=== PATIENT | female | born 1955 | race Caucasian/White ===

== ENCOUNTER 2020-11-04 09:10 | Outpatient (CLI) | payer OTHER | END 2020-11-04 09:11 | disposition critical access hospital (66) | LOC: EMS 09:10 | PROVIDERS: ATTEND Emergency Medicine | DX: R42 Dizziness and giddiness (principal); R11.0 Nausea | CPT/HCPCS: A0425; A0427 ==

== ENCOUNTER 2020-11-04 09:32 | Emergency (ER) | payer OTHER ==
[2020-11-04] MEDS ORDERED: SODIUM CHLORIDE 0.9% 1,000 ML IV STA (10:15)
--- NOTE | 2020-11-04 10:27 | XRAY Report ---
PROCEDURE: Chest 1 View X-Ray INDICATIONS: Chest Pain TECHNIQUE: One view of the chest was acquired. COMPARISON: None FINDINGS: Surgical changes and devices: None. Lungs and pleura: No pleural effusions or pneumothorax. Question small focal left basilar infiltrate . Mediastinum: Mediastinal contours appear normal. Heart size is normal. Bones and chest wall: No suspicious bony lesions. Overlying soft tissues appear unremarkable. IMPRESSION: Question small focal left basilar pneumonia. Progress films are recommended until clear. Reviewed by: Tarik Montgomery MD on 11/04/2020 10:25 AM PDT Approved by: Tarik Montgomery MD on 11/04/2020 10:25 AM PDT Station ID: [id number]
[2020-11-04 10:44] LABS: BASOPHILS # (AUTO) 0.1 10^3/uL (0.0-0.1); BASOPHILS % (AUTO) 0.8 %; EOSINOPHILS # (AUTO) 0.2 10^3/uL (0.0-0.7); EOSINOPHILS % (AUTO) 3.5 %; HCT - HEMATOCRIT 42.3 % (37.0-47.0); HGB - HEMOGLOBIN 13.8 g/dL (12.0-16.0); LYMPHOCYTES # (AUTO) 1.6 10^3/uL (1.5-3.5); LYMPHOCYTES % (AUTO) 24.6 %; MEAN CORPUSCULAR HEMOGLOBIN 29.7 pg (27.0-31.0); MEAN CORPUSCULAR HGB CONC 32.6 g/dL (32.0-36.0); MEAN PLATELET VOLUME 9.7 fL (7.9-10.8); MONOCYTES # (AUTO) 0.6 10^3/uL (0.0-1.0); MONOCYTES % (AUTO) 9.6 %; NEUTROPHILS % (AUTO) 61.2 %; PLT - PLATELET COUNT 347 10^3/uL (130-450); RED BLOOD COUNT 4.65 10^6/uL (4.20-5.40); RED CELL DISTRIBUTION WIDTH 14.1 % (12.0-15.0); WHITE BLOOD COUNT 6.6 x10^3/uL (4.8-10.8)
[2020-11-04 10:55] LABS: ALBUMIN 4.1 g/dL (3.2-5.5); ALBUMIN/GLOBULIN RATIO 1.1 (1.0-2.2); BILIRUBIN,TOTAL 0.8 mg/dL (0.2-1.0); CALCIUM 9.5 mg/dL (8.5-10.3); CREATININE 0.7 mg/dL (0.4-1.0); TOTAL PROTEIN 7.7 g/dL (6.7-8.2)
--- NOTE | 2020-11-04 12:14 | ED Physician Documentation ---
History of Present Illness - Stated complaint Stated Complaint: N/V, DIZZINESS - Chief complaint Chief Complaint: Neuro - History obtained from History obtained from: Patient - Additonal information Additional information: 65-year-old woman, previously healthy presents with severe pain this morning while trying to get up, sharp quality, associated with waves of nausea and vomiting (nbnb) and sensation of lightheadedness. Patient states that she felt normal yesterday but has had some abdominal upset recently. She also states that she has intermittent severe right inguinal and lower abdominal pain that is worse with cough, with sitting up and with rolling over in bed. Denies fever, diarrhea, urinary symptoms.Denies chest pain, shortness of breath or cardiac history. Review of Systems Ten Systems: 10 systems reviewed and negative Constitutional: denies: Fever, Chills GI: reports: Abdominal Pain, Nausea, Vomiting : denies: Dysuria Neurologic: reports: Other (lightheadedness) PD PAST MEDICAL HISTORY - Past Medical History Past Medical History: Yes Neuro: CVA, Migraines - Past Surgical History Past Surgical History: No - Present Medications Home Medications: Ambulatory Orders Medication Instructions Recorded Confirmed No Known Home Medications 11/04/20 11/04/20 - Allergies Allergies/Adverse Reactions: Allergies Allergy/AdvReac Type Severity Reaction Status Date / Time codeine Allergy Hives Verified 11/04/20 09:45 - Social History Does the pt smoke?: No Smoking Status: Never smoker Does the pt drink ETOH?: No Does the pt have substance abuse?: No - POLST Patient has POLST: No PD ED PE NORMAL - Vitals Vital signs reviewed: Yes - General General: Alert and oriented X 3, No acute distress, Well developed/nourished - HEENT HEENT: Atraumatic, PERRL, EOMI - Neck Neck: Supple, no meningeal sign - Cardiac Cardiac: RRR, No murmur, No gallop, No rub - Respiratory Respiratory: No respiratory distress, Clear bilaterally - Abdomen Abdomen: Non tender, Non distended, Other (R inguinal hernia palpaple with cough) - Female Female : Deferred - Rectal Rectal: Deferred - Back Back: No CVA TTP - Derm Derm: Normal color, Warm and dry - Extremities Extremities: No deformity - Neuro Neuro: Alert and oriented X 3 - Psych Psych: Normal mood, Normal affect Results - Vitals Vitals: Vital Signs - 24 hr 03/23/21 03/23/21 03/23/21 09:35 09:47 10:19 Temperature 36.9 C Heart Rate 82 75 88 Respiratory 17 16 Rate Blood Pressure 134/86 H 117/74 O2 Saturation 98 96 97 11/04/20 11:52 Temperature 36.8 C Heart Rate 78 Respiratory 18 Rate Blood Pressure 130/80 O2 Saturation 98 Oxygen O2 Source Room air - Labs Labs: Laboratory Tests 11/04/20 11/04/20 11/04/20 10:32 10:32 10:32 WBC 6.6 RBC 4.65 Hgb 13.8 Hct 42.3 MCV 91.0 MCH 29.7 MCHC 32.6 RDW 14.1 Plt Count 347 MPV 9.7 Neut # (Auto) 4.0 Lymph # (Auto) 1.6 [place] # (Auto) 0.6 Eos # (Auto) 0.2 Baso # (Auto) 0.1 Absolute Nucleated RBC 0.00 Nucleated RBC % 0.0 Sodium 136 Potassium 4.0 Chloride 102 Carbon Dioxide 24 Anion Gap 10.0 BUN 14 Creatinine 0.7 Estimated GFR (MDRD) 85 L Glucose 111 H Calcium 9.5 Total Bilirubin 0.8 AST 19 ALT 15 Alkaline Phosphatase 60 Troponin I High Sens < 2.3 L Total Protein 7.7 Albumin 4.1 Globulin 3.6 Albumin/Globulin Ratio 1.1 Lipase 21 L PD MEDICAL DECISION MAKING - ED course Complexity details: reviewed results, d/w patient ED course: 65-year-old woman, previously healthy presents with right inguinal hernia. She will f/u in surgery clinic. strict return precautions given. Departure - Departure Disposition: 01 Home, Self Care Clinical Impression: Inguinal hernia, Lightheadedness Condition: Stable Instructions: ED Hernia Inguinal Follow-Up: Luis Antonio Thomson MD [Provider Admit Priv/Credential] - Comments: You are seen in the emergency department for nausea, lightheadedness, and pain in your abdomen, and it appears to be the you have a right inguinal hernia causing your symptoms. You need to take it easy over the next couple days and drink lots of water to stay hydrated. Follow-up in surgery clinic for routine operative repair of your hernia. Do not lift anything heavier than a carton of milk over the next couple days.Return to the emergency department if you cannot put the hernia back in, if you develop any new or worsening symptoms or other concerns.
[2020-11-04 12:33] VITALS: BP 106/83
== END 2020-11-04 12:31 | disposition home or self-care (01) ==
LOC: ED 09:32
DX: K40.90 Unilateral inguinal hernia, without obstruction or gangrene, not specified as recurrent (principal)
CPT/HCPCS: 36415; 80053; 83690; 84484; 85025; 93005; 99284

== ENCOUNTER 2020-11-05 03:23 | Emergency (ER) | payer OTHER ==
--- NOTE | 2020-11-05 03:31 | ED Physician Documentation ---
PD HPI ABD PAIN - Stated complaint Stated Complaint: ABD PX, NAUSEA, VOMITING, HEADACHE - History obtained from History obtained from: Patient - History of Present Illness Timing - onset: Yesterday Timing - duration: Days (1) Timing - details: Abrupt onset, Still present Quality: Aching, Sharp, Pain Location: RLQ Radiation: No: Lower back, Right flank Worsened by: Moving, Palpation (in inguinal area) Associated symptoms: Nausea, Vomiting (couple of times.). No: Fever, Diarrhea, Constipation Similar symptoms before: Has not had sx before Recently seen: Emergency Dept (yesterday with this pain and had inguinal t enderness. Dx with hernia when stomach pressured/grunting. No signs of incarceration. Referred to Surgery. Has worse pain overnight and here for re- eval.) Review of Systems Constitutional: denies: Fever, Chills Nose: denies: Rhinorrhea / runny nose, Congestion Throat: denies: Sore throat Respiratory: denies: Cough GI: reports: Abdominal Pain, Nausea, Vomiting. denies: Constipation, Diarrhea : denies: Dysuria, Frequency Skin: denies: Rash, Lesions Neurologic: reports: Generalized weakness (feeling of lightheadedness with standing.). denies: Focal weakness, Numbness, Altered mental status, Headache PD PAST MEDICAL HISTORY - Past Medical History Neuro: CVA, Migraines - Past Surgical History Past Surgical History: No - Present Medications Home Medications: Ambulatory Orders Medication Instructions Recorded Confirmed HYDROcod/ACETAM 5/325 [[place] 5/325] 1 ea PO Q6H PRN #18 tablet 11/05/20 Naproxen [EC-Naproxen] 500 mg PO BID #20 11/05/20 Ondansetron Odt [Zofran] 4 mg TL Q6H PRN #10 tablet 11/05/20 - Allergies Allergies/Adverse Reactions: Allergies Allergy/AdvReac Type Severity Reaction Status Date / Time codeine Allergy Hives Verified 11/05/20 03:46 - Social History Does the pt smoke?: No Smoking Status: Never smoker Does the pt drink ETOH?: No Does the pt have substance abuse?: No - POLST Patient has POLST: No PD ED PE NORMAL - Vitals Vital signs reviewed: Yes - General General: Alert and oriented X 3, Well developed/nourished, Other (appears in moderate pain right lower abd. ) - Cardiac Cardiac: RRR, No murmur - Respiratory Respiratory: Clear bilaterally - Abdomen Abdomen: Normal bowel sounds, Soft, Non distended, No organomegaly, Other (To have tenderness in the inguinal area to palpation and even some to light touch. No tenderness in the back. No obvious hernia felt with her laying there. Bowel sounds are present) - Female Female : Deferred - Rectal Rectal: Deferred - Back Back: No CVA TTP - Derm Derm: Normal color, Warm and dry, No rash - Neuro Neuro: Alert and oriented X 3, No motor deficit, Normal speech Results - Vitals Vitals: Vital Signs - 24 hr 11/05/20 11/05/20 11/05/20 03:34 04:08 04:30 Temperature 37.1 C 36.9 C Heart Rate 97 67 78 Respiratory 24 16 14 Rate Blood Pressure 159/86 H 133/80 H 122/76 O2 Saturation 97 96 94 11/05/20 11/05/20 11/05/20 05:00 05:30 06:00 Temperature 36.9 C 36.6 C Heart Rate 91 85 77 Respiratory 16 16 16 Rate Blood Pressure 126/71 138/84 H 128/81 H O2 Saturation 97 98 96 11/05/20 11/05/20 06:30 07:00 Temperature 36.6 C 36.8 C Heart Rate 86 71 Respiratory 16 14 Rate Blood Pressure 126/77 122/74 O2 Saturation 100 95 Oxygen O2 Source Room air - Labs Labs: Laboratory Tests 11/05/20 04:02 Sodium 138 Potassium 4.0 Chloride 104 Carbon Dioxide 26 Anion Gap 8.0 BUN 14 Creatinine 0.8 Estimated GFR (MDRD) 72 L Glucose 104 H Calcium 9.1 Total Bilirubin 0.8 AST 22 ALT 11 Alkaline Phosphatase 71 Total Protein 7.8 Albumin 3.8 Globulin 4.0 Albumin/Globulin Ratio 1.0 Lipase 23 - Rads (name of study) abd/pelvic CT Radiology: Prelim report reviewed (no noted soft tissue abnormality/hernia. There is 1 mm distal ureteral stone with mild hydrouretet. ), See rad report PD MEDICAL DECISION MAKING - ED course Complexity details: reviewed old records, reviewed results, re-evaluated patient (improved pain; but with nausea still. Will give more antiemetic and IV fluids. ), considered differential (considerable tenderness inguinal area without mass/redness/rash. Consider deeper incarceration so can get CT to better eval. ), d/w patient Departure - Departure Disposition: 01 Home, Self Care Clinical Impression: Right lower quadrant abdominal pain, Ureterolithiasis Condition: Stable Record reviewed to determine appropriate education?: Yes Instructions: ED Hernia Inguinal, ED Stone Renal W Colic Prescriptions: Naproxen [EC-Naproxen] 500 mg PO BID #20 HYDROcod/ACETAM 5/325 [[place] 5/325] 1 ea PO Q6H PRN #18 tablet PRN Reason: Pain Ondansetron Odt [Zofran] 4 mg TL Q6H PRN #10 tablet PRN Reason: Nausea / Vomiting Comments: You may be getting some of your pain from the inguinal ligament given the apparent new hernia. This would account for some of the pain with movement and tenderness in the area. However you also have a small kidney stone at the end of the ureter almost to the bladder. This likely accounts for the deeper pain you are experiencing. Stay well-hydrated. Use anti-inflammatory twice daily with food. Ondansetron if needed for nausea. To that add Tylenol 500 mg every 4-6 hours for pain or hydrocodone if needed for worse pain. I would anticipate passage of the small kidney stone (1 to 2 mm size) over the next couple of days. Follow-up with your primary care if not improved over that time. Also follow-up with surgery regarding the prior discussion you have had about the hernia on your visit earlier.
[2020-11-05] MEDS ORDERED: KETOROLAC 15 MG/ML VIAL IVP STA (03:48)
[2020-11-05] MEDS ORDERED: SODIUM CHLORIDE 0.9% 1,000 ML IV STA ×2 (03:48→07:00)
[2020-11-05] MEDS ORDERED: ONDANSETRON 4 MG/2 ML VIAL IVP STA (03:48)
[2020-11-05] MEDS ORDERED: HYDROmorphone 1 MG/ML CARPUJECT IVP STA (03:48)
[2020-11-05] MEDS ORDERED: IOVERSOL 320 100 ML VIAL IVP ONE ×2 (04:09→05:05)
[2020-11-05 04:27] LABS: ALBUMIN 3.8 g/dL (3.2-5.5); BILIRUBIN,TOTAL 0.8 mg/dL (0.2-1.0); CALCIUM 9.1 mg/dL (8.5-10.3); CREATININE 0.8 mg/dL (0.4-1.0); TOTAL PROTEIN 7.8 g/dL (6.7-8.2)
[2020-11-05] MEDS ORDERED: DROPERIDOL 5 MG/2 ML VIAL IVP STA (06:28)
[2020-11-05 07:32] VITALS: BP 126/76
--- NOTE | 2020-11-05 10:27 | CT Report ---
PROCEDURE: Abdomen/Pelvis W INDICATIONS: RLQ Abdominal pain, appendicitis suspected TECHNIQUE: After the administration of intravenous contrast, 5 mm thick sections acquired from the diaphragms to the symphysis. 2.5 mm thick coronal and sagittal reformats were acquired. Optional 10-minute delay ed imaging may be performed from the kidneys to the bladder. For radiation dose reduction, the follo wing was used: automated exposure control, adjustment of mA and/or kV according to patient size. COMPARISON: None FINDINGS: Image quality: Excellent. ABDOMEN: Lung bases: Lung bases are clear. Heart size is normal. No pericardial effusion. Inferior ribs ar e intact. No basal pleural effusions or pneumothorax. Solid organs: Liver is normal in size and enhancement, without lacerations. Gallbladder is unremark able. Biliary system is non-dilated. Pancreas enhances normally, without transection. Spleen is no rmal in size and enhancement, without lacerations. No adrenal hematomas. Both kidneys enhance axel lly. There is a punctate distal right ureteral calculus with minimal prominence of the proximal right renal and ureteral collecting system. Peritoneum and bowel: No free fluid or air. Unenhanced bowel loops demonstrate normal wall thicknes s and caliber. Colonic diverticula is present. Appendix is within normal limits size. Nodes and vessels: No retroperitoneal or mesenteric adenopathy. Aorta and inferior vena cava are no rmal in size and enhancement. Miscellaneous: No ventral hernias. PELVIS: Genitourinary: Bladder wall thickness is normal. Miscellaneous: No inguinal hernias or adenopathy. Bones: Pelvic ring and hip joints appear intact. No vertebral compression fractures. Spondylolys is at L5-S1 is noted. IMPRESSION: 1. Punctate distal right ureteral calculus with mild dilation of the proximal collecting system as ab ove. 2. Diverticulosis. The above findings are concordant with preliminary report. Reviewed by: Arlen Yuen MD on 11/05/2020 10:26 AM PDT Approved by: Arlen Yuen MD on 11/05/2020 10:26 AM PDT Station ID: [id number]
== END 2020-11-05 07:57 | disposition home or self-care (01) ==
LOC: ED 03:23
DX: N20.1 Calculus of ureter (principal); R10.31 Right lower quadrant pain; R11.2 Nausea with vomiting, unspecified
CPT/HCPCS: 36415; 74177; 80053; 83690; 96361; 96374; 96375; 99284; 99285; J1170; Q9967

== ENCOUNTER 2023-07-12 22:21 | Outpatient (CLI) | payer MEDICARE, OTHER | END 2023-07-12 22:22 | disposition EMS.NT | LOC: EMS 22:21 | DX: M06.9 Rheumatoid arthritis, unspecified (principal); R05.9 Cough, unspecified; R25.1 Tremor, unspecified; F41.9 Anxiety disorder, unspecified ==

== ENCOUNTER 2023-07-13 00:17 | Outpatient (CLI) | payer MEDICARE, OTHER | END 2023-07-13 00:18 | disposition critical access hospital (66) | LOC: EMS 00:17 | DX: M79.621 Pain in right upper arm (principal); R50.9 Fever, unspecified; R25.1 Tremor, unspecified; R00.0 Tachycardia, unspecified | CPT/HCPCS: A0425; A0429 ==

== ENCOUNTER 2023-07-13 00:38 | Emergency (ER) | payer MEDICARE, OTHER ==
--- NOTE | 2023-07-13 01:28 | ED Physician Documentation ---
History of Present Illness - Stated complaint Stated Complaint: FLU-LIKE SYMP - History obtained from History obtained from: Patient, EMS - Additonal information Additional information: HPI from patient, EMS. c/o right shoulder pain which patient says its a rheumatoid flare (per patient). this started 1-2 days ago, gradual onset, constant, worse with movement, and c/w previous RA flares. Also c/o episode of shaking chills that started at approximately 8 PM tonight. She did not take her temperature at home but she suspects fever because of the shaking chills. She also complains of generalized myalgias. She also complains of left abdominal pain and left flank pain, which also started approximately 7 or 8 PM tonight. There was no inciting event, and there are no exacerbating nor ameliorating factors regarding the abdominal/flank pain. She denies urinary frequency, dysuria. Denies nausea, vomiting. Denies diarrhea. denies dyspnea, denies cough Review of Systems Constitutional: reports: Chills, Myalgias, Fatigue Cardiac: reports: Reviewed and negative Respiratory: reports: Reviewed and negative PD PAST MEDICAL HISTORY - Past Medical History Neuro: CVA, Migraines - Past Surgical History Past Surgical History: No - Present Medications Home Medications: Ambulatory Orders Medication Instructions Recorded Confirmed HYDROcod/ACETAM 5/325 [[place] 5/325] 1 ea PO Q6H PRN #18 tablet 11/05/20 Naproxen [EC-Naproxen] 500 mg PO BID #20 11/05/20 Ondansetron Odt [Zofran] 4 mg TL Q6H PRN #10 tablet 11/05/20 - Allergies Allergies/Adverse Reactions: Allergies Allergy/AdvReac Type Severity Reaction Status Date / Time codeine Allergy Hives Verified 11/05/20 03:46 - Social History Does the pt smoke?: No Smoking Status: Never smoker Does the pt drink ETOH?: No Does the pt have substance abuse?: No - POLST Patient has POLST: No PD ED PE NORMAL - Vitals Vital signs reviewed: Yes - General General: Alert and oriented X 3, No acute distress, Well developed/nourished - HEENT HEENT: Moist mucous membranes - Neck Neck: Supple, no meningeal sign - Cardiac Cardiac: RRR, No murmur - Respiratory Respiratory: No respiratory distress, Other (faint bibasilar course rales/rhonchi) - Abdomen Abdomen: Soft, Non distended, Other (mild TTP LUQ and LLQ without rebound or guarding) - Back Back: No CVA TTP - Derm Derm: Normal color, Warm and dry - Extremities Extremities: No tenderness to palpate, Normal ROM s pain, No edema, Other (normal right shoulder exam: no erythema, swelling, abnormal heat to touch) - Neuro Neuro: Alert and oriented X 3 Results - Vitals Vitals: Oxygen O2 Source Room air - Labs Labs: Laboratory Tests 07/13/23 07/13/23 07/13/23 02:25 02:28 02:28 WBC 14.8 H RBC 4.01 L Hgb 12.4 Hct 38.7 MCV 96.5 MCH 30.9 MCHC 32.0 RDW 14.9 Plt Count 318 MPV 9.0 Neut # (Auto) 10.7 H Lymph # (Auto) 2.2 [place] # (Auto) 1.8 H Eos # (Auto) 0.0 Baso # (Auto) 0.1 Absolute Nucleated RBC 0.00 Band Neuts % (Manual) Not Reportable Abnorm Lymph % (Manual) Not Reportable Nucleated RBC % 0.0 Neutrophils # (Manual) Not Reportable Lymphocytes # (Manual) Not Reportable Monocytes # (Manual) Not Reportable Eosinophils # (Manual) Not Reportable Basophils # (Manual) Not Reportable Differential Comment MANUAL=AUTO DIFF Platelet Estimate NORMAL (130-450,000) RBC Morph Micro Appear NORMAL APPEARANCE Sodium 137 Potassium 3.3 L Chloride 103 Carbon Dioxide 25 Anion Gap 9.0 BUN 10 Creatinine 0.7 Estimated GFR (MDRD) 84 L Glucose 101 Lactic Acid Calcium 8.9 Total Bilirubin 1.0 AST 19 ALT 15 Alkaline Phosphatase 41 L Total Protein 5.9 L Albumin 3.4 Globulin 2.5 Albumin/Globulin Ratio 1.4 Lipase 10 L Urine Color Urine Clarity Urine pH Ur Specific [place] Urine Protein Urine Glucose (UA) Urine Ketones Urine Occult Blood Urine Nitrite Urine Bilirubin Urine Urobilinogen Ur Leukocyte Esterase Ur Microscopic Review Urine Culture Comments Nasal Adenovirus (PCR) NOT DETECTED Nasal B. parapertussis DNA (PCR) NOT DETECTED Nasal Coronavir 229E PCR NOT DETECTED Nasal Coronavir HKU1 PCR NOT DETECTED Nasal Coronavir NL63 PCR NOT DETECTED Nasal Coronavir OC43 PCR NOT DETECTED Nasal Enterovir/Rhinovir PCR DETECTED A Nasal Influenza B PCR NOT DETECTED Nasal Influenza A PCR NOT DETECTED Nasal Parainfluen 1 PCR NOT DETECTED Nasal Parainfluen 2 PCR NOT DETECTED Nasal Parainfluen 3 PCR NOT DETECTED Nasal Parainfluen 4 PCR NOT DETECTED Nasal RSV (PCR) NOT DETECTED Nasal B.pertussis DNA PCR NOT DETECTED Nasal C.pneumoniae (PCR) NOT DETECTED I[place]an Human Metapneumo PCR NOT DETECTED Nasal M.pneumoniae (PCR) NOT DETECTED Nasal SARS-CoV-2 (PCR) DETECTED A 07/13/23 07/13/23 02:28 03:40 WBC RBC Hgb Hct MCV MCH MCHC RDW Plt Count MPV Neut # (Auto) Lymph # (Auto) [place] # (Auto) Eos # (Auto) Baso # (Auto) Absolute Nucleated RBC Band Neuts % (Manual) Abnorm Lymph % (Manual) Nucleated RBC % Neutrophils # (Manual) Lymphocytes # (Manual) Monocytes # (Manual) Eosinophils # (Manual) Basophils # (Manual) Differential Comment Platelet Estimate RBC Morph Micro Appear Sodium Potassium Chloride Carbon Dioxide Anion Gap BUN Creatinine Estimated GFR (MDRD) Glucose Lactic Acid 0.6 Calcium Total Bilirubin AST ALT Alkaline Phosphatase Total Protein Albumin Globulin Albumin/Globulin Ratio Lipase Urine Color YELLOW Urine Clarity CLEAR Urine pH 6.5 Ur Specific [place] 1.010 Urine Protein NEGATIVE Urine Glucose (UA) NEGATIVE Urine Ketones 40 H Urine Occult Blood NEGATIVE Urine Nitrite NEGATIVE Urine Bilirubin NEGATIVE Urine Urobilinogen 0.2 (NORMAL) Ur Leukocyte Esterase NEGATIVE Ur Microscopic Review NOT INDICATED Urine Culture Comments NOT INDICATED Nasal Adenovirus (PCR) Nasal B. parapertussis DNA (PCR) Nasal Coronavir 229E PCR Nasal Coronavir HKU1 PCR Nasal Coronavir NL63 PCR Nasal Coronavir OC43 PCR Nasal Enterovir/Rhinovir PCR Nasal Influenza B PCR Nasal Influenza A PCR Nasal Parainfluen 1 PCR Nasal Parainfluen 2 PCR Nasal Parainfluen 3 PCR Nasal Parainfluen 4 PCR Nasal RSV (PCR) Nasal B.pertussis DNA PCR Nasal C.pneumoniae (PCR) [place]an Human Metapneumo PCR Nasal M.pneumoniae (PCR) Nasal SARS-CoV-2 (PCR) - Rads (name of study) chest xray Relevant Findings:: Prelim report reviewed, See rad report CT a/P with IV contrast Relevant Findings:: Prelim report reviewed, See rad report PD Medical Decision Making - ED course Complexity details: reviewed results, re-evaluated patient, considered differential, d/w patient ED course: Leukocytosis on otherwise unremarkable CBC (WBC 14.8), normal lactate (0.6). mild hypokalemia (3.3) but otherwise no notable abnormalities on ER abdominal panel. Normal UA except noncontributory finding of 40 ketones. No concerning nor diagnostic findings on CXR, CT A/P (diverticulosis without diverticulitis). Respiratory PCR panel is positive for both COVID and entero/rhinovirus. She is given 125mg IV solumedrol for her right shoulder pain presumably due to RA flare. She is also given 4mg IV morphine sulfate for abd pain, generalized myalgias. On reevaluation, results are discussed with patient. She reports feeling much improved with the medications given. Paxlovid is considered, but I notice on i nteraction checking that there is a moderate interaction with methotrexate with potential complications including hepatitis, cirrhosis. Patient says she gets the methotrexate as an injection once per week, so temporary discontinuation of this medication is not an option. Because of this potential interaction with possibility of dire consequences, Paxlovid is not given. Departure - Departure Disposition: 01 Home, Self Care Clinical Impression: COVID-19, Rhinovirus Condition: Good Instructions: ED Viral Syndrome Comments: You tested positive for COVID as well as rhinovirus. Rhinovirus is a "common cold" virus. Both of these viruses are contagious. Google "CDC isolation" and then click on the link to "Isolation and Precautions for People with COVID-19 - CDC". This will have useful information for you as well as household contacts. There is a calculator on the page that will determine when you can end isolation. Your tests were otherwise without concerning findings. Your white blood cell count was mildly elevated, which is to be expected when fighting an infection. The CT scan of your abdomen and pelvis did not show any cause of your abdominal discomfort. And your chest x-ray was clear. Forms: PCP List Discharge Date/Time: 07/13/23 06:41
[2023-07-13 01:37] VITALS: O2SAT 100
[2023-07-13] MEDS ORDERED: methylPREDNISolone SUCCINATE 125 MG/2 ML VIAL IVP STA (02:15)
[2023-07-13 02:35] LABS: BASOPHILS # (AUTO) 0.1 10^3/uL (0.0-0.1); BASOPHILS % (AUTO) 0.4 %; HCT - HEMATOCRIT 38.7 % (37.0-47.0); HGB - HEMOGLOBIN 12.4 g/dL (12.0-16.0); LYMPHOCYTES # (AUTO) 2.2 10^3/uL (1.5-3.5); LYMPHOCYTES % (AUTO) 14.6 %; MEAN CORPUSCULAR HEMOGLOBIN 30.9 pg (27.0-31.0); MEAN CORPUSCULAR VOLUME 96.5 fL (81.0-99.0); MONOCYTES # (AUTO) 1.8 10^3/uL (0.0-1.0); MONOCYTES % (AUTO) 12.2 %; NEUTROPHILS # (AUTO) 10.7 10^3/uL (1.5-6.6); NEUTROPHILS % (AUTO) 72.3 %; PLT - PLATELET COUNT 318 10^3/uL (130-450); RED BLOOD COUNT 4.01 10^6/uL (4.20-5.40); RED CELL DISTRIBUTION WIDTH 14.9 % (12.0-15.0); WHITE BLOOD COUNT 14.8 x10^3/uL (4.8-10.8)
[2023-07-13] MEDS ORDERED: MORPHINE 2 MG/ML CARPUJECT IVP STA (02:35)
[2023-07-13 02:51] LABS: ALBUMIN 3.4 g/dL (3.2-5.5); ALBUMIN/GLOBULIN RATIO 1.4 (1.0-2.2); CALCIUM 8.9 mg/dL (8.5-10.3); CREATININE 0.7 mg/dL (0.6-1.3); POTASSIUM 3.3 mmol/L (3.5-4.5); TOTAL PROTEIN 5.9 g/dL (6.4-8.9)
[2023-07-13 03:08] LABS: PLATELET ESTIMATE, MANUAL NORMAL (130-450,000) (NORMAL); RBC MORPHOLOGY (MULTIPLE) NORMAL APPEARANCE (NORMAL)
[2023-07-13 03:09] LABS: DIFFERENTIAL COMMENT MANUAL=AUTO DIFF
[2023-07-13 03:29] LABS: CORONAVIRUS 229E-RESP PCR NOT DETECTED; CORONAVIRUS HKU1-RESP PCR NOT DETECTED; CORONAVIRUS NL63-RESP PCR NOT DETECTED; CORONAVIRUS OC43-RESP PCR NOT DETECTED
[2023-07-13 03:30] LABS: B. PARAPERTUSSIS- RESP PCR PAN NOT DETECTED; B. PERTUSSIS- RESP PCR PANEL NOT DETECTED; C. PNEUMONIAE- RESP PCR PANEL NOT DETECTED; HUMAN METAPNEUMOVIRUS NOT DETECTED; INFLUENZA A- RESP PCR PANEL NOT DETECTED; INFLUENZA B - RESP PCR PANEL NOT DETECTED; M. PNEUMONIAE- RESP PCR PANEL NOT DETECTED; PARAINFLUENZA VIRUS 1 NOT DETECTED; PARAINFLUENZA VIRUS 2 NOT DETECTED; PARAINFLUENZA VIRUS 3 NOT DETECTED; PARAINFLUENZA VIRUS 4 NOT DETECTED; RHINOVIRUS/ENTEROVIRUS DETECTED; RSV- RESP PCR PANEL NOT DETECTED; SARS-CoV-2 -RESP PCR PANEL DETECTED
[2023-07-13 03:48] LABS: BILIRUBIN,URINE NEGATIVE (NEGATIVE); GLUCOSE, URINE (UA) NEGATIVE (NEGATIVE); KETONES,URINE (UA) 40 mg/dL (NEGATIVE); LEUKOCYTE ESTERASE, URINE NEGATIVE (NEGATIVE); NITRITE,URINE NEGATIVE (NEGATIVE); OCCULT BLOOD,URINE NEGATIVE (NEGATIVE); PH,URINE 6.5 PH (5.0-7.5); PROTEIN,URINE NEGATIVE (NEGATIVE); UROBILINOGEN,URINE 0.2 (NORMAL) E.U./dL (NORMAL)
[2023-07-13 03:49] LABS: CLARITY,URINE CLEAR (CLEAR)
[2023-07-13] MEDS ORDERED: iohexoL-300 100 ML VIAL IVP ONE (04:28)
[2023-07-13 06:50] VITALS: BP 137/74
--- NOTE | 2023-07-13 07:24 | XRAY Report ---
PROCEDURE: Chest 2 View X-Ray INDICATIONS: chills/sweats, left flank/LUQ pain TECHNIQUE: 2 views of the chest were acquired. COMPARISON: 11/04/2020. FINDINGS: Surgical changes and devices: None. Lungs and pleura: No pleural effusions or pneumothorax. Lungs are clear. Mediastinum: Mediastinal contours appear normal. Heart size is normal. Bones and chest wall: No suspicious bony lesions. Overlying soft tissues appear unremarkable. IMPRESSION: No acute cardiopulmonary process. Findings are concordant with preliminary interpretation provided by [facility]. Reviewed by: Tarik Montgomery MD on 07/13/2023 7:23 AM PST Approved by: Tarik Montgomery MD on 07/13/2023 7:23 AM PST Station ID: [id number]
--- NOTE | 2023-07-13 08:24 | CT Report ---
PROCEDURE: ABDOMEN/PELVIS W INDICATIONS: left abdominal pain, tenderness CONTRAST: Omni 300 100ml TECHNIQUE: After the administration of IV contrast, 5 mm thick sections acquired from the diaphragms to the symp hysis. 5 mm thick coronal and sagittal reformats were acquired. For radiation dose reduction, the f ollowing was used: automated exposure control, adjustment of mA and/or kV according to patient size. COMPARISON: 11/05/2020 FINDINGS: Image quality: Excellent. Lung bases and heart: Unremarkable. Liver: No solid mass. Gallbladder and biliary tree: No radiopaque stones or wall thickening. No biliary dilation. Spleen: No splenomegaly. Pancreas: No pancreatic ductal dilation. Adrenals: No adrenal nodule. Kidneys and ureters: No hydronephrosis. No renal cystic lesion which requires follow up. No solid mas s. Bowel and peritoneum: No bowel distension. No pathologic free fluid. Appendix is visualized and is wi thin normal limits. Sigmoid diverticulosis is seen. No sigmoid colon wall thickening or mesenteric fa t stranding. No abscess collection. Mild fecal stasis in the colon is seen. Lymph nodes: No central or retroperitoneal adenopathy. Vessels: No infrarenal aortic aneurysm. PELVIS Reproductive organs: Unremarkable. Bladder: No abnormal wall thickening, accounting for underdistension. Pelvic lymph nodes: No pelvic adenopathy by size criteria. Bones: No aggressive osseous abnormality. Other: No significant ventral or inguinal hernia. IMPRESSION: 1. No acute inflammatory process is seen in abdomen or pelvis. No free fluid of free air. 2. Sigmoid diverticulosis without CT evidence of acute diverticulitis. Normal appendix. No bowel obst ruction. Findings are concordant with preliminary interpretation provided by [facility]. Reviewed by: Osbaldo Vieyra MD on 07/13/2023 8:23 AM PST Approved by: Osbaldo Vieyra MD on 07/13/2023 8:23 AM PST Station ID: [id number]
== END 2023-07-13 06:41 | disposition home or self-care (01) ==
LOC: EDUNIT# → ED 00:38
DX: U07.1 COVID-19 (principal); B34.8 Other viral infections of unspecified site
CPT/HCPCS: 36415; 71046; 74177; 80053; 81003; 83605; 83690; 85025; 87633; 99283; Q9967; 81001; 87086